=== PATIENT | female | born 1970 | race Caucasian/White ===

== ENCOUNTER 2021-09-26 16:44 | Emergency (ER) | payer OTHER, MEDICAID ==
[~2021-09-26] VITALS: Ht 170.2 cm; Wt 86.4 kg
[2021-09-26] MEDS ORDERED: LEVO125T8 PO (17:49)
[2021-09-26] MEDS ORDERED: ketorolac trometh inj. 60 MG/2 ML VIAL IM ONE (18:30)
[2021-09-26 18:53] VITALS: BP 132/72
== END 2021-09-26 19:22 | disposition home or self-care (01) ==
LOC: ER 16:46
DX: S86.811A Strain of other muscle(s) and tendon(s) at lower leg level, right leg, initial encounter (principal); Z87.81 Personal history of (healed) traumatic fracture; Z88.2 Allergy status to sulfonamides; Z88.1 Allergy status to other antibiotic agents; Z88.8 Allergy status to other drugs, medicaments and biological substances; Z79.899 Other long term (current) drug therapy; X58.XXXA Exposure to other specified factors, initial encounter; Y93.01 Activity, walking, marching and hiking; Y92.89 Other specified places as the place of occurrence of the external cause; Y99.8 Other external cause status
CPT/HCPCS: 96372; 99284; J1885